=== PATIENT | male | born 1990 | race Two or more races ===

== ENCOUNTER 2022-10-19 16:56 | Emergency (ER) | payer OTHER, SELFPAY ==
[2022-10-19 17:08] VITALS: BP 127/69; PULSE 135; RESP 20; TEMP 35.7; O2SAT 95; BMI 50.2
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
== END 2022-10-19 18:12 | disposition home or self-care (01) ==
PROVIDERS: Emergency Provider Emergency Medicine
DX: Z71.1 Person with feared health complaint in whom no diagnosis is made (principal)
CPT/HCPCS: 99282; 99283